=== PATIENT | female | born 1995 | race Caucasian/White ===

== ENCOUNTER → 2017-01-14 | Outpatient (CLI) | payer OTHER ==
[2014-03-29 09:47] VITALS: BP 105/66
[2017-01-15 04:19] LABS: ESTRADIOL LEVEL 57.5 pg/mL (.); FSH 7.3 mIU/mL (.); LUTEINIZING HORMONE 21.5 mIU/mL (.); PROGESTERONE 0.6 ng/mL (.)
== END | disposition home or self-care (01) ==
LOC: LAB 15:11
PROVIDERS: ATTEND Family Medicine
DX: N92.1 Excessive and frequent menstruation with irregular cycle (principal)
CPT/HCPCS: 36415; 82626; 82670; 82679; 83001; 83002; 84144; 84439

== ENCOUNTER → 2017-11-13 | Outpatient (CLI) | payer OTHER ==
[2014-03-29 09:47] VITALS: BP 105/66
--- NOTE | 2017-11-13 13:42 | RAD ---
MRI of the brain without contrast 11/13/2017 Clinical History: Memory loss over last 2 years. Technique: Unenhanced T1-weighted sagittal and axial, T2-weighted axial and coronal and FLAIR and diffusion-weighted axial images of the brain were obtained. Findings: The ventricles and sulci are within normal limits in size and configuration. No area of abnormal signal intensity is seen involving brain parenchyma. No extra-axial fluid collection is seen. There is no MRI evidence of acute ischemia/infarction. Mild mucosal thickening is seen scattered throughout the paranasal sinuses. A 1.3 cm mucous retention cyst is involving the left maxillary sinus. Normal flow voids are seen within the major vascular structures surrounding the brain parenchyma. Impression: 1. Negative MRI of the brain. 2. Mild paranasal sinus disease. Electronically signed by: Danny Armas MD (11/13/2017 1:38 PM) [id number]
== END | disposition home or self-care (01) ==
LOC: MRI 10:39
PROVIDERS: ATTEND Psychiatry & Neurology Neurology with Special Qualifications in Child Neurology
DX: J34.1 Cyst and mucocele of nose and nasal sinus (principal)
CPT/HCPCS: 70551

== ENCOUNTER → 2017-11-25 | Outpatient (CLI) | payer OTHER ==
[2014-03-29 09:47] VITALS: BP 105/66
--- NOTE | 2017-11-26 14:25 | EEG ---
DATE OF SERVICE: 11/25/2017 EEG NUMBER: [id number] OBJECTIVE: The patient is a 22-year-old female with episodes of memory loss. Rule out seizures. DESCRIPTION: This is a digital study. Electrodes are placed according to the international 10-20 system. Bipolar and referential montages are available. Activation procedures typically include hyperventilation and intermittent photic stimulation. INTERPRETATION: The waking background consists of 9-10 Hz, 50-100 microvolt activity, symmetrically distributed over parietooccipital regions and reactive to eye opening. Hyperventilation and intermittent photic stimulation are noncontributory. Stage 2 sleep is achieved with normal electroencephalogram patterns. IMPRESSION: This electroencephalogram with the patient awake and asleep is within normal limits. There is no focal, paroxysmal, or epileptiform activity. Thank you for letting us help with the patient's care. RIGO GAGNON MD DR: GIOVANNI/tarsha JOB#: [id number] / [id number] BERTHA Cox
== END | disposition home or self-care (01) ==
LOC: RT 07:32
PROVIDERS: ATTEND Psychiatry & Neurology Neurology with Special Qualifications in Child Neurology
DX: R06.4 Hyperventilation (principal); R41.3 Other amnesia
CPT/HCPCS: 95816

== ENCOUNTER → 2018-08-24 | Outpatient (CLI) | payer OTHER ==
[2014-03-29 09:47] VITALS: BP 105/66
== END | disposition home or self-care (01) ==
LOC: SPEC 10:36
PROVIDERS: ATTEND Internal Medicine
DX: Z00.00 Encounter for general adult medical examination without abnormal findings (principal)
CPT/HCPCS: 88175

== ENCOUNTER → 2018-11-17 | Outpatient (CLI) | payer OTHER ==
[2014-03-29 09:47] VITALS: BP 105/66
[2018-11-17 13:41] LABS: BASO % 1 % (0-3); EOS # 0.1 x10^3/uL (0.0-0.7); EOS % 1 % (0-3); HEMATOCRIT 35.8 % (36.0-47.0); HEMOGLOBIN 11.7 g/dL (12.0-15.5); LYMPH # 1.9 x10^3/uL (1.0-4.8); LYMPH % 32 % (24-48); MEAN CORPUSCULAR HEMOGLOBIN 26 pg (25-35); MEAN CORPUSCULAR HGB CONC 33 g/dL (31-37); MEAN CORPUSCULAR VOLUME 81 fL (79-100); MONO # 0.4 x10^3/uL (0.0-1.1); MONO % 6 % (0-9); NEUT # 3.7 x10^3/uL (1.8-7.7); NEUT % 60 % (31-73); PLATELET COUNT 161 x10^3/uL (140-400); RED BLOOD COUNT 4.44 x10^6/uL (3.50-5.40); RED CELL DISTRIBUTION WIDTH 15.6 % (11.5-14.5); WHITE BLOOD COUNT 6.1 x10^3/uL (4.0-11.0)
[2018-11-17 13:56] LABS: ALBUMIN 4.2 g/dL (3.4-5.0); CALCIUM 9.3 mg/dL (8.5-10.1); CREATININE 0.8 mg/dL (0.6-1.0); GFR 89.7; POTASSIUM 3.7 mmol/L (3.5-5.1); TOTAL BILIRUBIN 0.3 mg/dL (0.2-1.0); TOTAL PROTEIN 8.6 g/dL (6.4-8.2)
[2018-11-18 05:15] LABS: FSH 6.4 mIU/mL (.); PROGESTERONE 0.3 ng/mL (.)
== END | disposition home or self-care (01) ==
LOC: LAB 13:09
PROVIDERS: ATTEND Internal Medicine
DX: F43.23 Adjustment disorder with mixed anxiety and depressed mood (principal)
CPT/HCPCS: 36415; 80053; 82672; 83001; 83002; 84144; 84443; 85025

== ENCOUNTER → 2019-03-04 | Outpatient (CLI) | payer OTHER ==
[2014-03-29 09:47] VITALS: BP 105/66
== END | disposition home or self-care (01) ==
LOC: LAB 16:26
PROVIDERS: ATTEND Internal Medicine
DX: N89.8 Other specified noninflammatory disorders of vagina (principal); R10.2 Pelvic and perineal pain
CPT/HCPCS: 36415; 84702; 87480; 87491; 87510; 87591; 87660

== ENCOUNTER → 2019-03-09 | Outpatient (CLI) | payer OTHER ==
[2014-03-29 09:47] VITALS: BP 105/66
== END | disposition home or self-care (01) ==
LOC: LAB 12:14
PROVIDERS: ATTEND Internal Medicine
DX: R10.2 Pelvic and perineal pain (principal); N89.8 Other specified noninflammatory disorders of vagina
CPT/HCPCS: 87491; 87591

== ENCOUNTER → 2020-01-19 | Outpatient (CLI) | payer OTHER ==
[2014-03-29 09:47] VITALS: BP 105/66
[2020-01-19 14:55] LABS: BASO % 1 % (0-3); EOS # 0.1 x10^3/uL (0.0-0.7); EOS % 1 % (0-3); HEMATOCRIT 38.6 % (36.0-47.0); LYMPH # 1.9 x10^3/uL (1.0-4.8); LYMPH % 36 % (24-48); MEAN CORPUSCULAR HEMOGLOBIN 29 pg (25-35); MEAN CORPUSCULAR HGB CONC 34 g/dL (31-37); MEAN CORPUSCULAR VOLUME 85 fL (79-100); MONO # 0.4 x10^3/uL (0.0-1.1); MONO % 7 % (0-9); NEUT # 2.9 x10^3/uL (1.8-7.7); NEUT % 55 % (31-73); PLATELET COUNT 162 x10^3/uL (140-400); RED BLOOD COUNT 4.53 x10^6/uL (3.50-5.40); RED CELL DISTRIBUTION WIDTH 14.1 % (11.5-14.5); WHITE BLOOD COUNT 5.3 x10^3/uL (4.0-11.0)
[2020-01-19 15:15] LABS: ALBUMIN 4.2 g/dL (3.4-5.0); ALBUMIN/GLOBULIN RATIO 1.1 (1.0-1.7); CALCIUM 8.8 mg/dL (8.5-10.1); CREATININE 0.7 mg/dL (0.6-1.0); GFR 103.7; POTASSIUM 3.6 mmol/L (3.5-5.1); TOTAL BILIRUBIN 0.3 mg/dL (0.2-1.0); TOTAL PROTEIN 8.2 g/dL (6.4-8.2)
[2020-01-19 15:48] LABS: BILIRUBIN,URINE NEGATIVE (NEG); CLARITY,URINE CLEAR; COLOR,URINE YELLOW; NITRITE,URINE NEGATIVE (NEG); PH,URINE 6.5 (<5.0-8.0); PROTEIN,URINE NEGATIVE (NEG-TRACE); UROBILINOGEN,URINE 0.2 mg/dL (0.2 mg/dL)
[2020-01-19 16:07] LABS: BACTERIA,URINE FEW /HPF (0-FEW); RBC,URINE 0 /HPF (0-2); WBC,URINE OCC /HPF (0-4)
[2020-01-20 05:33] LABS: HEMOGLOBIN A1C 5.1 % (4.8-5.6)
== END ==
LOC: LAB 14:06
PROVIDERS: ATTEND Internal Medicine
DX: R42 Dizziness and giddiness (principal); R55 Syncope and collapse
CPT/HCPCS: 36415; 80053; 81001; 82950; 83036; 84443; 85025; 87086

== ENCOUNTER → 2020-09-26 | Outpatient (CLI) | payer OTHER ==
[2014-03-29 09:47] VITALS: BP 105/66
--- NOTE | 2020-09-26 10:35 | KCIC ---
Exam Date: 09/26/2020 10:06 AM XR EXAM OF ANKLE_RIGHT 3VIEWS Indication: Reason: Rt ankle pain s/p injury. / Spl. Instructions: Trampoline injury, swelling, pain medial aspect. / History: . FINDINGS/ IMPRESSION: Ankle mortise is intact. No acute fracture or dislocation. Alignment and joint spaces are maintained. The soft tissues are w ithin normal limits. Electronically signed by: Sony August MD (09/26/2020 10:32 AM) [id number]
== END ==
LOC: KCIC 10:03
PROVIDERS: ATTEND Internal Medicine
DX: S99.911A Unspecified injury of right ankle, initial encounter (principal); M25.571 Pain in right ankle and joints of right foot; X58.XXXA Exposure to other specified factors, initial encounter; Y93.89 Activity, other specified; Y92.89 Other specified places as the place of occurrence of the external cause; Y99.8 Other external cause status
CPT/HCPCS: 73610

== ENCOUNTER → 2021-02-20 | Outpatient (CLI) | payer OTHER ==
[2014-03-29 09:47] VITALS: BP 105/66
== END ==
LOC: LAB 11:02
PROVIDERS: ATTEND Internal Medicine
DX: R10.9 Unspecified abdominal pain (principal)
CPT/HCPCS: 83690; 86003

== ENCOUNTER → 2021-03-04 | Outpatient (CLI) | payer OTHER ==
[2014-03-29 09:47] VITALS: BP 105/66
--- NOTE | 2021-03-04 08:20 | RAD ---
EXAM: ULTRASOUND ABDOMEN COMPLETE CLINICAL HISTORY: Reason: ABD PAIN / Spl. Instructions: / History: COMPARISON: None available. TECHNIQUE: Ultrasound of the upper abdomen was performed. FINDINGS: The head and body of the pancreas are unremarkable. The tail is obscured by intestinal gas.. The liver measures 13.7 cm in length in the right mid clavicular line. The hepatic margin is smooth and the hepatic echogenicity is normal. There are no focal liver lesions. Flow seen within the emma l veins. The gallbladder is normal in appearance without evidence for cholelithiasis. There is no wall thicke nidia or pericholecystic fluid. There is no pain with direct transducer pressure over the gallbladder . The common bile duct measures 0.4 cm. The spleen measures 9.9 cm. The right kidney measures 10 cm in bipolar length. Normal renal cortical echotexture and thickness. N o focal renal lesion, hydronephrosis or shadowing renal calculus. The left kidney measures 11.4 cm in bipolar length. Normal renal cortical echotexture and thickness. No focal renal lesion, hydronephrosis or shadowing renal calculus. Visualized portions of the abdominal aorta and inferior vena cava are unremarkable. There is no free fluid in the upper abdomen. IMPRESSION: Increased echogenicity of the liver, fatty liver. Electronically signed by: Cholo Diehl MD (03/04/2021 8:18 AM) [id number]
== END ==
LOC: US 07:49
PROVIDERS: ATTEND Internal Medicine
DX: K76.0 Fatty (change of) liver, not elsewhere classified (principal)
CPT/HCPCS: 76700

== ENCOUNTER → 2021-04-30 | Outpatient (CLI) | payer OTHER ==
[2014-03-29 09:47] VITALS: BP 105/66
--- NOTE | 2021-04-30 16:27 | KCIC ---
INDICATION: Reason: NUMBNESS/PAIN/BRUISING/SWELLING OF LEFT LE / Spl. Instructions: / History: COMPARISON: None. TECHNIQUE: Grayscale, color and doppler ultrasound images were obtained of the left lower extremity v enous vasculature. LEFT: No thrombus identified in the common femoral vein, femoral vein, popliteal vein or visualized calf ve ins. IMPRESSION: * No thrombus identified in deep venous system of the left lower extremity. Electronically signed by: Maninder Toney MD (04/30/2021 4:24 PM) [id number]
--- NOTE | 2021-04-30 17:11 | KCIC ---
EXAM: Left lower extremity sonogram. HISTORY: Pain and bruising. TECHNIQUE: Sonographic imaging of the left thigh at the site of palpable concern was performed. COMPARISON: None. FINDINGS: There are small nonmasslike echogenic areas within the subcutaneous fat of the distal later al left thigh at the site of palpable concern, the appearance of which favors a soft tissue contusion . No hematoma, abscess or mass is seen. There is no convincing fat necrosis or lipoma. IMPRESSION: Suspected subcutaneous soft tissue contusion within the inferior lateral left thigh the s ite of palpable concern. Continued clinical follow-up of palpable abnormalities is recommended. Electronically signed by: Kesha Gomez MD (04/30/2021 5:09 PM) [id number]
== END ==
LOC: KCIC US 14:40
PROVIDERS: ATTEND Internal Medicine
DX: S82.012A Displaced osteochondral fracture of left patella, initial encounter for closed fracture (principal); M79.662 Pain in left lower leg; R20.0 Anesthesia of skin; X58.XXXA Exposure to other specified factors, initial encounter; Y93.89 Activity, other specified; Y92.89 Other specified places as the place of occurrence of the external cause; Y99.8 Other external cause status
CPT/HCPCS: 76881; 93971